=== PATIENT | male | born 2000 | race Caucasian/White ===

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

== ENCOUNTER 2018-02-27 11:49 | Emergency (ER) | payer OTHER ==
--- NOTE | 2018-02-27 13:52 | EDPHY ---
H & P Smoking Status: Current some day smoker Time Seen by Provider: 02/27/18 13:07 HPI/ROS: CHIEF COMPLAINT: Puncture wound left foot HISTORY OF PRESENT ILLNESS: 17-year-old male presents to the emergency department with a puncture wound to his left foot. The patient accidentally stepped on a nail that went through his shoe and punctured his left foot. The incident happened last night. He did try to clean it with some peroxide and soap and water. No other treatment at home. He believes his tetanus shot is current. ROS: Denies numbness or tingling in his toes, retained foreign body or any other injuries. (Amee Laguna) Past Medical/Surgical History: SVT with ablation (Amee Laguna) Social History: [employer] student (Amee Laguna) Physical Exam: On examination the patient has a puncture wound to the plantar aspect of his left foot the overlying metatarsal heads. No surrounding redness or signs of infection or cellulitis. No lymphangitis. No palpable bony tenderness. Full range of motion of his toes. Strong dorsalis pedis pulse on the dorsal aspect of the left foot. (Amee Laguna) Constitutional: Initial Vital Signs Temperature (C) 36.4 C 02/27/18 12:34 Heart Rate 60 02/27/18 12:34 Respiratory Rate 16 02/27/18 12:34 Blood Pressure 108/62 02/27/18 12:34 O2 Sat (%) 95 02/27/18 12:34 O2 Delivery Mode Room Air Allergies/Adverse Reactions: amoxicillin Allergy (Mild, Verified 02/27/18 12:34) Rash Home Medications: Medication Instructions Recorded Ciprofloxacin [Cipro 500 mg] 500 mg PO BID #10 tab 02/27/18 MDM/Departure - [facility] Imaging: I viewed and interpreted images myself - [facility] ED Course/Re-evaluation: The patient declined anesthetic prior to irrigation. Patient's foot was thoroughly irrigated and bacitracin and bandage applied. He will be treated with ciprofloxacin given the history of puncture wound through a tennis shoe. This was discussed with Dr. Lc Morrow, secondary supervising physician, who did not directly evaluate the patient but agrees with treatment and plan. The patient was given strict wound care precautions. (Amee Laguna) I did not see this patient while he was in the emergency department. However his care was discussed with the PA while the patient was in the department. I agree with treatment plan and management (Lc Morrow) - Depart Disposition: Home, Routine, Self-Care Clinical Impression: Puncture wound of left foot Condition: Good Instructions: Puncture Wound (ED), Acute Wounds (ED) Additional Instructions: Soak your foot in warm water for 15-20 minutes every 2-3 hours especially today and tomorrow to help reduce risk of infection. Ciprofloxacin oral antibiotic twice daily for 5 days to prevent infection. Return to the emergency department if he notices any signs of infection such as redness, swelling, increased pain, fever, purulent drainage. Ibuprofen 600 mg every 8 hr as needed for pain. Prescriptions: Ciprofloxacin [Cipro 500 mg] 500 mg PO BID #10 tab Referrals: [facility] [Cl[facility]] - 2-3 days, if not improved
[2018-02-27 14:23] VITALS: BP 110/60
== END 2018-02-27 14:24 | disposition home or self-care (01) ==
DX: S91.332A Puncture wound without foreign body, left foot, initial encounter (principal); W45.0XXA Nail entering through skin, initial encounter